=== PATIENT | male | born 1965 | race Caucasian/White ===

== ENCOUNTER 2019-02-12 17:14 | Emergency (ER) | payer OTHER ==
[~2019-02-12] VITALS: Ht 188 cm; Wt 99.8 kg
[2019-02-12 18:14] LABS: ABSOLUTE BASOPHILS 0.1 thou/uL (0.0-0.2); ABSOLUTE EOSINOPHILS 0.1 thou/uL (0.0-0.7); ABSOLUTE LYMPHOCYTES 1.7 thou/uL (0.8-5.3); ABSOLUTE MONOCYTES 0.5 thou/uL (0.0-1.2); ABSOLUTE NEUTROPHILS 3.9 thou/uL (1.6-8.1); EOSINOPHILS 2.1 %; HEMATOCRIT 37.1 % (42.0-52.0); HEMOGLOBIN 12.7 gm/dL (14.0-18.0); LYMPHOCYTES 27.1 %; MCH 29.9 pg (26.0-34.0); MCHC 34.1 g/dL (28.0-37.0); MCV 87.6 fL (80.0-100.0); MPV 7.3 fl. (7.2-11.1); NUCLEATED RBCS 0 /100WBC; PLATELET COUNT* 308 thou/uL (150-400); POLYS 61.8 %; RBC 4.24 mil/uL (4.50-6.00); RDW-CV 12.8 % (10.5-14.5); WBC 6.2 thou/uL (4.0-11.0)
[2019-02-12 18:22] LABS: ANION GAP 10 mmol/L (7-16); BUN 12 mg/dL (7-18); CALCIUM 8.8 mg/dL (8.5-10.1); CHLORIDE 104 mmol/L (98-107); CO2 29 mmol/L (21-32); CREATININE 0.9 mg/dL (0.6-1.3); GLUCOSE 95 mg/dL (70-99); POTASSIUM 3.6 mmol/L (3.5-5.1); SODIUM 143 mmol/L (136-145)
[2019-02-12 18:31] LABS: ALBUMIN 3.4 g/dL (3.4-5.0); ALKALINE PHOSPHATASE 80 U/L (46-116); SGOT 15 U/L (15-37); SGPT 23 U/L (30-65); TOTAL BILIRUBIN 0.2 mg/dL (<0.1-1.0); TOTAL PROTEIN 7.2 g/dL (6.4-8.2); TROPONIN-I LEVEL <0.06 ng/mL (<0.06)
[2019-02-12 20:39] VITALS: BP 137/74
--- NOTE | 2019-02-13 11:39 | EKG ---
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1965 Requested By: Echo Feldman Order Number: [id number] MD: Chacorta Patino Measurements Intervals [place] Rate: 87 P: 23 [place]: 164 QRS: -2 QRSD: 102 T: 61 QT: 382 QTc: 460 Interpretive Statements Sinus rhythm ST elev, probable normal early repol pattern Artifact in lead(s) I,III,aVL and baseline wander in lead(s) V4 No previous ECG available for comparison Electronically Signed On 02-13-2019 11:39:07 CDT by Chacorta Patino [email or web address] <ELECTRONICALLY SIGNED> By: Chacorta Patino MD, FACC 02/13/19 1139 1756 1756 Chacorta Patino MD, [facility] /EPI
--- NOTE | 2019-02-13 11:39 | EKG ---
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1965 Requested By: Echo Feldman Order Number: [id number] Reading MD: Chacorta Patino Measurements Intervals [place] Rate: 86 P: 132 OR: 31 QRS: -74 QRSD: 136 T: 61 QT: 399 QTc: 478 Interpretive Statements Ventricular-paced complexes No further analysis attempted due to paced rhythm No previous ECG available for comparison Electronically Signed On 02-13-2019 11:39:15 CDT by Chacorta Patino [email or web address] <ELECTRONICALLY SIGNED> By: Chacorta Patino MD, [facility] 02/13/19 1139 1810 09 hCacorta Patino MD, FACC /EPI
== END 2019-02-12 20:41 | disposition home or self-care (01) ==
LOC: M.ERS 17:14
PROVIDERS: Nurse Practitioner Family
DX: T18.5XXA Foreign body in anus and rectum, initial encounter (principal); K59.00 Constipation, unspecified; F17.200 Nicotine dependence, unspecified, uncomplicated